=== PATIENT | male | born 1995 | race Caucasian/White ===

== ENCOUNTER 2019-04-13 13:34 | Emergency (ER) | payer OTHER ==
[2019-04-13] MEDS ORDERED: Ketorolac 30 MG/ML SDV IM ONE (15:19)
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
== END 2019-04-13 16:31 | disposition home or self-care (01) ==
LOC: DL.ED 13:34
DX: S06.0X0A Concussion without loss of consciousness, initial encounter (principal); G44.319 Acute post-traumatic headache, not intractable; R68.84 Jaw pain; Y04.0XXA Assault by unarmed brawl or fight, initial encounter
CPT/HCPCS: 70486; 96372; 99284; J1885